=== PATIENT | male | born 1995 | race Caucasian/White ===

== ENCOUNTER 2016-11-19 13:47 | Emergency (ER) | payer SELFPAY ==
[~2016-11-19] VITALS: Ht 188 cm; Wt 117.9 kg
[~2016-11-19 13:47] MED LIST: AZITHROMYCIN250 M1 PO; BENADRYL 25MG C25 MG PO; BROMFED DM COU118 ML PO; MOTRIN 600MG.600 MG PO; NOMEDS XX; PREDNISONE 20MG20 MG PO; VISTARIL25 MG PO; ZANTAC 300300 M1 PO
--- NOTE | 2016-11-19 14:15 | Urgent Treatment Center Report ---
History of Present Issue Date/Time Seen by Provider 11/19/16 1403 Visit Reason Pt arrived:Walked Presenting Problem:N/D CHILLS SINCE YESTERDAY Location if Accident: Onset of symptoms date/time:/ or onset unknown for:MEDICAL HX UNKNOWN Have you (or family members/close friends) recently traveled outside the [place]? N If Yes, where/when: Have you had exposure to infectious disease within the past month? TB? Other? Specify: Patient states that he has not been feeling well for several days States that he has been having ear pain and chills along with nausea and diarrhea State that he thinks he may have ran a fever yesterday State that he has been trying to fight it but today he felt even worse ALLERGIES Coded Allergies: Penicillins (03/07/15) clindamycin (03/07/15) Uncoded Allergies: IMIDAZOLINE (03/07/15) History Medical History General CAD? Yes Angina: No DE: No Hypertension? No Hyperlipidemia? No CHF? No DVT? No PE? No COPD? No Asthma? No Anemia? No GERD? No Gastric ulcers? No GI Bleed? No Hernia? No Thyroid Problems? No Hypothyroidism? No CVA? No Seizures? No Diabetes? No Renal Insuffiency? No UTI? No Stones? No BPH? No GB Disease: No Nephritic Syndrome? No Asplenia? No Hepatitis? No Sickle Cell Disease? No Arthritis? No Migraines? No Cataracts? No Glaucoma? No MRSA? No HIV? No TB? No Anxiety? No Depression? No Cancer? No More? Yes Additional hx: WPW Immunization HX DT/Tetanus Unknown Flu Refused Pneumonia Refuses Surgical Hx Previous Surgery?Y PINS TO L. ELBOW CARDIAC ABLATION 2016 Family History Family HX Diabetes No CAD No Hypertension No Hyperlipidemia No Cancer Yes TB No Social History Smoking Hx Smoker: Never Smoker Tobacco: No Packs/day < 1 Pack Alcohol Alcohol: No Review of Systems All Other Systems Reviewed and Negative Constitutional chills, fever ENT ear pain, throat pain. Gastrointestinal denies abdominal pain, diarrhea, nausea, denies vomiting Physical Exam Vital Signs Vital Signs Date Time Temp Pulse Resp B/P Pulse O2 O2 Flow FiO2 Ox Delivery Rate 11/19 1400 97.8 94 18 138/87 100 General Appearance normal appearance, WD/WN, no apparent distress Ear, Nose, Throat Right pain, upon examination observed medium sized winged insect inside right ear with redness in ear and TM buldging, used crulette and winged insect removed Ear red, irritated Respiratory Status Yes: trachea midline, chest symmetrical, non tender chest. No: respiratory distress. Cardiovascular normal exam, regular rate/rhythm Gastrointestinal normal bowel sounds, normal exam, non tender, no guarding, no rebound Neurologic alert, normal exam, oriented x 3 Medical Decision Making LABS/Meds/Orders Pt receiving controlled substance in ED? No Departure Departure Time of Disposition 1420 Disposition DC Home or Self Care(routine) Clinical Impression Primary Impression: Otitis media Qualifiers: Otitis media type: unspecified Laterality: right Qualified Code: H66.91 - Otitis media, unspecified, right ear Secondary Impressions: FB ear Qualifiers: Encounter type: initial encounter Laterality: right Qualified Code: T16.1XXA - Foreign body in right ear, initial encounter Condition STABLE Referrals Darius Comer MD (Family): 3 Days-Call Office Patient Instructions DI for Ear Pain-Adult, DI for Nausea -- Adult, Diarrhea, DIET-DIARRHEA NUTRITION [facility] Additional Instructions Take medication as prescribed Follow up with family doctor REturn if needed Avoid spicy or fried foods for next couple of days Discharge Counseling Counseled pt/family regarding diagnosis, medications/RX, home care, follow up needs Prescriptions Current Visit Scripts Azithromycin (Zithromycin (Z-CYNTHIA) 250MG Tab) 250 MG PO DAILY #6 TAB TAKE TWO (2) TABLETS ON DAY 1, THEN ONE (1) TABLET DAY #2 THRU #5 at 142
[2016-11-19] MEDS ORDERED: ZITHROMAX Z PA250 MG PO (14:27)
[2016-11-19 14:29] VITALS: BP 138/87
--- OUTSIDE RECORDS SUMMARY | 2016-11-22 12:01 | External Medical Summary Rpt | CCD ---
Author Author , JESUS Organization JESUS Address Unknown Phone [email or web address] Care Team Providers Care It Communications Specialist Name Role Phone SANGEETA SANCHEZ Unavailable Unavailable CONNIE SANGEETA ROSALES, ARNOLD Unavailable Unavailable AMAURI ROSENBAUM, Unavailable Unavailable [facility]MAURI [facility] Un[facility], [facility] Angelica Figueroa MD, Unavailable Unavailable Angelica LONGORIA, Unavailable Unavailable SHAYLA LONGORIA, Unavailable Unavailable SHAYLA LONGORIA [facility], [facility] Unavailable Unavailable [id number] [address] [id number], [facility] [address] [address] [facility] [place] [facility] [place] MOH Unavailable Unavailable [facility] Unavailable Unavailable #591, [facility] [address] WEHRETELVINA III SAMIA, Unavailable Unavailable WEHRMAN III SAMIA Purpose Continuity of Care Document - 01-03-2008 through 2016 Problems Code Diagnosis DOS Provider Status 85551 COR 07-30-2014 [facility] UNSPEC [facility] TYPE VESSEL MANZANITA/LEANN T 4267 ANOMALOUS 07-30-2014 [facility] CULAR INC EXCITATION 01019 REFLUX 07-30-2014 [facility] 61344 VOMITING 07-30-2014 [facility] 5589 OTH&UNSPEC 07-06-2013 SANGEETA ROSLAES NONINFECTIO US GASTROENTER ITIS&COLITI S 462 ACUTE 06-09-2013 WEHRMAN III PHARYNGITIS SAMIA 4539 ACUTE URIS 06-09-2013 WEHRMAN III OF SAMIA UNSPECIFIED SITE 708.0 708.0 02-10-2013 All [facility] 4660 ACUTE 11-16-2012 SANGEETA ROSALES BRONCHITIS 41063 OTHER 06-19-2011 SHAYLA VISUAL GRE DISTORTIONS AND ENTOPTIC PHENOMENA 83091 UNS 10-26-2008 SANGEETA, GASTRITIS&G AMAURI Lincoln ASTRODUODIT IS W/O MENTION HEMORR 3829 UNSPECIFIED 06-13-2008 SANGEETA OTITIS AMAURI Lincoln MEDIA 4619 ACUTE 04-07-2008 SANGEETA, SINUSITIS, AMAURI [place] UNSPECIFIED D32.9 BENIGN NEOPLASM OF MENINGES, UNSPECIFIED I45.6 PRE-EXCITAT ION SYNDROME R07.9 CHEST PAIN, UNSPECIFIED R55 SYNCOPE AND COLLAPSE S06.0X9A CONCUSSION W LOSS OF CONSCIOUSNE SS OF UNSP DURATION, INIT W57.XXXA BIT/STUNG BY NONVENOM INSECT \T\ OTH NONVENOM ARTHROPODS, INIT Allergies, Adverse Reactions, Alerts Type Drug Allergy Adverse Reaction to Substance Substance Reaction Severity Decongestant, RAISES HR Intermediate Imidazoline Penicillin I-RASH Intermediate Medications Na ND Rx Da Fi Fi Am Da Di Ph RX Ph St me C No te ll ll ou ys ag ar # ys at rm s nt no ma ic us Or Da si cy ia de te s n re d De 00 01 0 No xa 51 -0 me 74 2- Lo th 90 20 ng as 12 14 er on 5 e Ac 4M ti G/ ve Ml Sd v AZ 00 03 03 1 6. 5 RI 87 AR Ac IT 09 -0 -0 00 TE 29 NO ti HR 37 2- 2- 0 93 LD ve OM 14 20 20 AI YC 61 11 11 D RI IN 8 PH CH AR AR 25 MA D 0 CY W MG 03 TA 93 BL 8 ET # 03 93 TN 00 03 03 18 6 RI 87 AR Ac OM 60 -0 -0 0. TE 29 NO ti ET 31 2- 2- 00 95 LD ve ARMENDARIZ 58 20 20 0 AI ZI 65 11 11 D RI NE 4 PH CH -D AR AR M MA D SY CY W RU P 03 93 8 # 03 93 BE 68 09 10 00 30 10 WA 70 AR Ac NZ 38 -2 -0 .0 L- 37 NO ti ON 20 2- 8- 00 MA 89 LD ve AT 24 20 20 RT 4 AT 80 09 09 RI E 1 PH CH 20 AR AR 0 MA D MG CY W CA #5 PS 91 UL E CE 00 09 10 00 20 10 WA 70 AR Ac FD 78 -2 -0 .0 L- 37 NO ti IN 12 2- 8- 00 MA 89 LD ve IR 17 20 20 RT 3 66 09 09 RI 30 0 PH CH 0 AR AR MG MA D CY W CA PS #5 UL 91 E AZ 00 09 09 00 6. 5 WA 70 AR Ac IT 78 -1 -2 00 L- 37 NO ti HR 11 7- 4- 0 MA 17 LD ve OM 49 20 20 RT 6 YC 66 09 09 RI IN 8 PH CH AR AR 25 MA D 0 CY W MG #5 TA 91 BL ET TN 00 09 09 00 18 6 WA 70 AR Ac OM 60 -1 -2 0. L- 37 NO ti ET 31 7- 4- 00 MA 17 LD ve ARMENDARIZ 58 20 20 0 RT 7 ZI 65 09 09 RI NE 8 PH CH -D AR AR M MA D SY CY W RU P #5 91 AZ 00 05 05 00 6. 5 WA 70 AR Ac IT 78 -0 -2 00 L- 19 NO ti HR 11 5- 1- 0 MA 37 LD ve OM 49 20 20 RT 8 YC 66 09 09 RI IN 8 PH CH AR AR 25 MA D 0 CY W MG #5 TA 91 BL ET LO 00 05 05 00 30 30 WA 88 AR Ac RA 78 -0 -2 .0 L- 13 NO ti TA 15 5- 1- 00 MA 99 LD ve DI 07 20 20 RT 1 NE 70 09 09 RI 1 PH CH 10 AR AR MA D MG CY W TA #5 BL 91 ET LO 00 03 04 00 40 5 WA 70 AR Ac PE 37 -2 -0 .0 L- 13 NO ti RA 82 4- 9- 00 MA 71 LD ve NH 10 20 20 RT 4 DE 00 09 09 RI 2 1 PH CH AR AR MG MA D CY W CA PS #5 UL 91 E TN 68 03 04 00 20 5 WA 70 AR Ac OM 38 -2 -0 .0 L- 13 NO ti ET 20 4- 9- 00 MA 70 LD ve ARMENDARIZ 04 20 20 RT 8 ZI 10 09 09 RI NE 1 PH CH AR AR 25 MA D CY W MG #5 TA 91 BL ET CE 00 03 03 00 20 10 WA 70 AR Ac FD 78 -0 -2 .0 L- 11 NO ti IN 12 9- 6- 00 MA 38 LD ve IR 17 20 20 RT 7 66 09 09 RI 30 0 PH CH 0 AR AR MG MA D CY W CA PS #5 UL 91 E TN 00 03 03 00 18 6 WA 70 AR Ac OM 60 -0 -2 0. L- 11 NO ti ET 31 9- 6- 00 MA 38 LD ve ARMENDARIZ 58 20 20 0 RT 9 ZI 65 09 09 RI NE 8 PH CH -D AR AR M MA D SY CY W RU P #5 91 AZ 00 11 03 01 6. 5 WA 69 AR Ac IT 78 -2 -1 00 L- 97 NO ti HR 11 4- 2- 0 MA 04 LD ve OM 49 20 20 RT 2 YC 66 08 09 RI IN 8 PH CH AR AR 25 MA D 0 CY W MG #5 TA 91 BL ET AZ 00 11 12 00 6. 5 WA 69 AR Ac IT 78 -2 -0 00 L- 97 NO ti HR 11 4- 4- 0 MA 04 LD ve OM 49 20 20 RT 2 YC 66 08 08 RI IN 8 PH CH AR AR 25 MA D 0 CY W MG #5 TA 91 BL ET LO 00 11 12 00 30 30 WA 88 AR Ac RA 78 -2 -0 .0 L- 13 NO ti TA 15 4- 4- 00 MA 12 LD ve DI 07 20 20 RT 6 NE 70 08 08 RI 1 PH CH 10 AR AR MA D MG CY W TA #5 BL 91 ET Vital Signs 02-10-2013 01:37 Name Value Interpretat Reference Comment ion Range Body 98.5 [degF] Temperature BP 82 mm[Hg] Diastolic BP Systolic 160 mm[Hg] Heart 63 /min Rate/Pulse O2% 96 % Respiratory 18 /min Rate Procedures Procedure DOS Code Location Performer Comment ONDANSETR Q0162 [facility] ON 1 MG [facility] ORL NOT INC INC EXCEED 48 HR DOSE REG Encounters Encounter Start End Date Code Location Performer Type Date EMERGENCY 44132 [facility] T VISIT LOW/MODER SEVERITY HOSPITAL [facility] - [facility] OUTPATIEN INC T EMERGENCY 26297 [facility] [place] [facility] [place] 5 5 [facility] DEPART[facility], PLL[facility] T VISIT MODERATE SEVERITY OFFICE 97901 SANGEETA MICHAELEN 4 4 CONNIE CONNIE T VISIT 15 MINUTES EMERGENCY 25947 [facility] T VISIT MODERATE SEVERITY [facility]OSPITAL [facility] - [facility] OUTPATIEN [facility] T Emergency RENZO Figueroa MD (ER) 4 01:19 4 01:37 [facility] OFFICE 18250 SANGEETA DEL CASTILLO 3 3 CONNIE CONNIE T VISIT 15 MINUTES OFFICE 63145 S[facility]ETA [facility] 3 3 CONNIE CONNIE T VISIT 15 MINUTES OFFICE 20012 SANGETEA [facility] OUT[facility] 2 2 CONNIE CONNIE T VISIT 15 MINUTES OFFICE 59995 SHAYLA MCGUIRE OUTPATIEN 2 2 GRE GRE T NEW 45 MINUTES OFFICE 78327 SANGEETA [facility] 2 2 CONNIE CONNIE T VISIT 15 MINUTES OFFICE 38284 SNAGEETA [facility] 2 2 CONNIE CONNIE T VISIT 15 MINUTES OFFICE 63162 SANGEETA MCINTOSHPATIBIPIN 1 1 CONNIE CONNIE T VISIT 15 MINUTES OFFICE 23502 SANGEETA [facility] OUTPAT[facility] 1 1 CONNIE CONNIE T VISIT 15 MINUTES OFFICE 53708 SANGEETA [facility] 9 9 AMAURI W AMAURI W T VISIT 15 MINUTES OFFICE 86703 S[facility]ETA [facility] 9 9 AMAURI W AMAURI W T VISIT 15 MINUTES OFFICE 23024 SANGEETA [facility] 9 9 AMAURI W AMAURI W T VISIT 15 MINUTES OFFICE 89593 SANGEETA [facility] 9 9 AMAURI W AMAURI W T VISIT 15 MINUTES OFFICE 43250 S[facility]ETA [facility] 9 9 AMAURI W AMAURI W T VISIT 15 MINUTES OFFICE 43247 S[facility]A [facility] 9 9 AMAURI W AMAURI W T VISIT 15 MINUTES OFFICE 48778 S[facility]ETA [facility] 8 8 AMAURI W AMAURI W T NEW 30 MINUTES
--- OUTSIDE RECORDS SUMMARY | 2016-11-22 12:01 | External Medical Summary Rpt | CCD ---
Author Author , JESUS Organization JESUS Address Unknown Phone [email or web address] Care Team Providers Care Operating Cost Clerk Name Role Phone SANGEETA SANCHEZ Unavailable Unavailable CONNIE SANGEETA ROSALES, ARNOLD Unavailable Unavailable AMAURI ROSENBAUM, Unavailable Unavailable [facility]URI [facility] Unavailable [facility] INC, [facility] Angelica Figueroa MD, Unavailable Unavailable Angelica LONGORIA, Unavailable Unavailable SHAYLA LONGORIA, Unavailable Unavailable SHAYLA LONGORIA [facility]available [facility], [facility] Unavailable Unavailable [address] [address] 0393, [facility] [address] [address] 0393 [facility] [facility] Unavailable Unavailable [facility] Unavailable Unavailable #591, [facility] WEHRETELVINA III SAMIA, Unavailable Unavailable WEHRMAN III SAMIA Purpose Continuity of Care Document - 01-03-2008 through 2016 Problems Code Diagnosis DOS Provider Status 34813 COR 07-30-2014 [facility] UNSPEC INC TYPE VESSEL [place]/LEANN T 4267 ANOMALOUS 07-30-2014 [facility] CULAR INC EXCITATION 83472 REFLUX 07-30-2014 [facility] 83762 VOMITING 07-30-2014 [facility] 5589 OTH&UNSPEC 07-06-2013 SANGEETA ROSALES NONINFECTIO US GASTROENTER ITIS&COLITI S 462 ACUTE 06-09-2013 WEHRMAN III PHARYNGITIS SAMIA 3559 ACUTE URIS 06-09-2013 WEHRMAN III OF SAMIA UNSPECIFIED SITE 708.0 708.0 02-10-2013 All [facility] 4660 ACUTE 11-16-2012 SANGEETA ROSALES BRONCHITIS 22285 OTHER 06-19-2011 SHAYLA VISUAL GRE DISTORTIONS AND ENTOPTIC PHENOMENA 07134 UNS 10-26-2008 SANGEETA, GASTRITIS&G AMAURI Lincoln ASTRODUODIT [...] 93 BL 8 ET # 03 93 MO 00 03 03 18 6 RI 87 [...] W MG #5 TA 91 BL ET MO 00 09 09 00 18 6 WA [...] 4- 9- 00 MA 71 LD ve SC 10 20 20 RT 4 DE 00 09 09 RI 2 1 PH CH AR AR MG MA D CY W CA PS #5 UL 91 E MO 68 03 04 00 20 5 WA [...] W CA PS #5 UL 91 E MO 00 03 03 00 18 6 WA [...] Date Code Location Performer Type Date EMERGENCY 15323 [facility] T VISIT LOW/MODER SEVERITY HOSPITAL [facility] - 5 5 [facility] OUTPATI[facility] T EMERGENCY 00657 [facility] [place] [facility] T VISIT MODERATE SEVERITY OFFICE 07177 SANGEETA MICHAELEN 4 4 CONNIE CONNIE T VISIT 15 MINUTES EMERGENCY 51539 ALL 4 4 [facility] T VISIT MODERATE SEVERITY HOSPITAL ALL - 4 4 [facility] OUT[facility] T Emergency RENZO Figueroa MD (ER) 4 01:19 4 01:37 [facility] OFFICE 73730 SANGEETA DEL CASTILLO 3 3 CONNIE CONNIE T VISIT 15 MINUTES OFFICE 46802 S[facility]A [facility] 3 3 CONNIE CONNIE T VISIT 15 MINUTES OFFICE 33955 SANGEETA [facility] 2 2 CONNIE CONNIE T VISIT 15 MINUTES OFFICE 41030 SHAYLA MCGUIRE OUTPATIEN 2 2 GRE GRE T [place] 45 MINUTES OFFICE 06768 SANGEETA [facility] 2 2 CONNIE CONNIE T VISIT 15 MINUTES OFFICE 79435 S[facility]ETA [facility] 2 2 CONNIE CONNIE T VISIT 15 MINUTES OFFICE 01388 SANGEETA MCINTOSHPATIBIPIN 1 1 CONNIE CONNIE T VISIT 15 MINUTES OFFICE 98206 SANGEETA [facility]PAT[facility] 1 1 CONNIE CONNIE T VISIT 15 MINUTES OFFICE 18424 S[facility]ETA [facility] 9 9 AMAURI W AMAURI W T VISIT 15 MINUTES OFFICE 01340 [facility]A [facility] 9 9 AMAURI W AMAURI W T VISIT 15 MINUTES OFFICE 81926 S[facility]A [facility] 9 9 AMAURI W AMAURI W T VISIT 15 MINUTES OFFICE 87763 S[facility]A [facility] 9 9 AMAURI W AMAURI W T VISIT 15 MINUTES OFFICE 47756 S[facility]A [facility] 9 9 AMAURI W AMAURI W T VISIT 15 MINUTES OFFICE 38231 [facility]A [facility] 9 9 AMAURI W AMAURI W T VISIT 15 MINUTES OFFICE 69490 [facility]A [facility] 8 8 AMAURI W AMAURI W T NEW 30 MINUTES
--- OUTSIDE RECORDS SUMMARY | 2016-11-22 12:02 | External Medical Summary Rpt | CCD ---
Author Author , JESUS Organization MANDOANAHY Address Unknown Phone [email or web address] Immunization Name Date Rout CVX Reac Dose Comm Prov Is Faci e tion ent ider Refu lity Give sed n Tdap 06-2 115 999 Hist H149 No H149 , 5-20 oric Adso 07 al rbed Info rmat ion - Sour ce Unsp ecif ied Vari 08-1 21 999 Hist H149 No H149 cell 5-20 oric a 01 al Info rmat ion - Sour ce Unsp ecif ied MMR 05-0 3 999 Hist H149 No H149 8-19 oric 97 al Info rmat ion - Sour ce Unsp ecif ied DTP- 05-0 22 999 Hist H149 No H149 Hib 8-19 oric 97 al Info rmat ion - Sour ce Unsp ecif ied Hep 05-0 8 999 Hist H149 No H149 B, 8-19 oric ped/ 97 al adol Info rmat ion - Sour ce Unsp ecif ied DTP- 08-1 22 999 Hist H149 No H149 Hib 4-19 oric 96 al Info rmat ion - Sour ce Unsp ecif ied Hep 08-1 8 999 Hist H149 No H149 B, 4-19 oric ped/ 96 al adol Info rmat ion - Sour ce Unsp ecif ied Amando 08-1 2 999 Hist H149 No H149 o-OP 4-19 oric V 96 al Info rmat ion - Sour ce Unsp ecif ied [place]ando 06-1 2 999 Hist H149 No H149 o-OP 0-19 oric V 96 al Info rmat ion - Sour ce Unsp ecif ied Hep 06-1 45 999 Hist H149 No H149 B, 0-19 oric UF 96 al Info rmat ion - Sour ce Unsp ecif ied DTP- 06-1 22 999 Hist H149 No H149 Hib 0-19 oric 96 al Info rmat ion - Sour ce Unsp ecif ied [place]ando 04-0 2 999 Hist H149 No H149 o-OP 8-19 oric V 96 al Info rmat ion - Sour ce Unsp ecif ied DTP- 04-0 22 999 Hist H149 No H149 Hib 8-19 oric 96 al Info rmat ion - Sour ce Unsp ecif ied
--- OUTSIDE RECORDS SUMMARY | 2016-11-22 12:02 | External Medical Summary Rpt | CCD ---
Author Author , JESUS Organization MANDOANAHY Address Unknown Phone [email or web address] Immunization Name Date Rout CVX Reac Dose [...]
--- OUTSIDE RECORDS SUMMARY | 2016-11-22 12:02 | External Medical Summary Rpt ---
Author Author JESUS Heath, JESUS [employer] Organization [employer] Address Unknown Phone Unavailable Results EK EKG 12 LEAD Observa Value Referen Units Interpr Notes Date ti ce etation Range Station No No No No Mar 09 ata ECG informa informa informa informa 2016 tion in ti in tion in in 10:56 Study\. source source source source AM br\St. data data data data Elizabe th Edge[employer] d\.br\I nterpre tive Stateme nts\.br \SINUS RHYTHM\ .br\EAR LY REPOLAR IZATION \.br\TA LL T-WAVES , SUGGEST S HYPERKA LEMIA\. br\Elec tronica lly Signed On 03-09-19 16 19:41:1 6 EST by Donald Ryan MD ELECTROPHYSIOLOGY PROCEDURE Observa Value Referen Units Interpr Notes Date ti ce etation Range This is No No No No Mar 09 a informa informa informa informa 2016 summary tion in tion in tion in ti in 10:38 source source source source AM report. data data data data The complet e report is availab le in the patient 's medical record. If you cannot access the medical record, please contact the sending [facility] [place] [facility] for a detaile d fax or copy.\. br\\.br \1. Success ful transse ptal LA Access under fluoros copic and ICE guidanc e\.br\2 . 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 and\.br \ablati on of left anterol ateral AP\.br\ ACT POC Observa Value Referen Units Interpr Notes Date ce etation Range ACT-LR 258 89 - second( High No Mar 09 169 s) informa 2015 tion in 9:54 AM source data Auto Diff Observa Value Referen Units Interpr Notes Date ce etation Range Neutrop 50.8 No % No No Mar 09 hils informa informa informa 2016 [#/volu tion in tion in tion in 7:47 AM me] in source source source Blood data data data by Automat ed count Lymphoc 37.0 No % No Mar 09 ytes informa informa informa 2016 [#/volu tion in tion in tion in 7:47 AM me] in source source source Blood data data data by Automat ed count Monocyt 7.9 No % No Mar 09 es informa informa informa 2015 [#/volu tion in tion in tion in 7:47 AM me] in source source source Blood data data data by Automat ed count Eos 3.9 No % No Mar 09 Percent informa informa informa 2016 tion in tion in tion in 7:47 AM source source source data data data Baso 0.4 No % No Mar 09 Percent informa informa informa 2016 tion in tion in tion in 7:47 AM source source source data data data Neut# 5.3 1.8 - x10(3)/ No Mar 09 7.7 mcL informa informa 2016 tion in tion in 7:47 AM source source data data Lymph# 3.9 0.6 - x10(3)/ No No Mar 09 4.8 mcL informa informa 2016 tion in tion in 7:47 AM source source data data [place]# 0.8 0.0 - x10(3)/ No No Mar 09 1.3 mcL informa informa 2016 tion in tion in 7:47 AM source source data data Eos# 0.4 0.0 - x10(3)/ No No Mar 09 0.5 mcL informa informa 2016 tion in tion in 7:47 AM source source data data Baso# 0.0 0.0 - x10(3)/ No No Mar 09 0.2 mcL informa informa 2016 tion in tion in 7:47 AM source source data data CBC Observa Value Referen Units Interpr Notes Date tion ce etation Range Do not repeat if done in the past 10 days. LEUKOCY 10.5 4.0 - x10(3)/ No No Mar 09 YANELIS 11.0 mcL informa informa 2016 tion in tion in 7:47 AM source source data data Erythro 5.98 4.30 - x10(6)/ High No Mar 09 cytes 5.81 mcL informa 2016 [#/volu tion in 7:47 AM me] in source Blood data by Automat ed count Hemoglo 16.9 13.5 - gm/dL No Mar 09 bin 17.1 informa informa 2016 [Mass/v tion in tion in 7:47 AM olume] source source in data data Blood Hematoc 52.3 38.9 - % High No Mar 09 rit 51.6 informa 2016 [Volume tion in 7:47 AM source Fractio data n] of Blood by Automat ed count Erythro 87.6 82.5 - fL No Mar 09 cyte 99.8 informa informa 2016 mean tion in tion in 7:47 AM corpusc source source ular data data volume [Entiti c volume] by Automat ed count Erythro 28.3 27.0 - pg No Mar 09 cyte 34.3 informa informa 2015 mean tion in tion in 7:47 AM corpusc source source ular data data hemoglo bin [Entiti c mass] by Automat ed count Erythro 32.3 32.1 - gm/dL No Mar 09 cyte 35.3 informa informa 2016 mean tion in tion in 7:47 AM corpusc source source ular data data hemoglo bin concent ration [Mass/v olume] by Automat ed count Erythro 13.6 11.5 - % No Mar 09 cyte 15.0 informa informa 2016 distrib tion in tion in 7:47 AM ution source source width data data [Ratio] by Automat ed count Platele 229 144 - x10(3)/ No No Mar 09 ts 423 mcL informa informa 2016 [#/volu tion in tion in 7:47 AM me] in source source Blood data data by Automat ed count MPV 9.5 6.8 - fL No No Mar 09 10.8 informa informa 2016 tion in tion in 7:47 AM source source data data PT Observa Value Referen Units Interpr Notes Date tion ce etation Range PT/INR only if patient is on Coumadin. Notify creative developer if INR is 1.8 or greater PT 11.6 9.3 - second( No No Mar 08 12.3 s) informa informa 2016 tion in tion in 7:11 PM source source data data INR in 1.08 0.87 - No No Level Mar 08 Platele 1.15 informa informa of 2016 t poor tion in tion in Therapy 7:11 PM plasma source source by data data Indicat Coagula ions tion Target assay INR Range\. br\\.br \Standa rd Dose Treatme nt and prophyl axis of venous 2.0 - 3.0\.br \ thrombo sis, pulmona ry embolis m\.br\\ .br\ High Dose High risk patient s with mechani loni 2.5 - 3.5\.br \ heart valves Auto Diff Observa Value Referen Units Interpr Notes Date tion ce etation Range Neutrop 63.6 No % No No Mar 08 hils informa informa informa 2015 [#/volu tion in tion in tion in 6:56 PM me] in source source source Blood data data data by Automat ed count Lymphoc 26.9 No % No No Mar 08 ytes informa informa informa 2015 [#/volu tion in tion in tion in 6:56 PM me] in source source source Blood data data data by Automat ed count Monocyt 5.6 No % No No Mar 08 es informa informa informa 2015 [#/volu tion in tion in tion in 6:56 PM me] in source source source Blood data data data by Automat ed count Eos 3.2 No % No No Mar 08 Percent informa informa informa 2016 tion in tion in tion in 6:56 PM source source source data data data Baso 0.7 No % No No Mar 08 Percent informa informa informa 2016 tion in tion in tion in 6:56 PM source source source data data data Neut# 5.0 1.8 - x10(3)/ No No Mar 08 7.7 mcL informa informa 2016 tion in tion in 6:56 PM source source data data Lymph# 2.1 0.6 - x10(3)/ No No Mar 08 4.8 mcL informa informa 2016 tion in tion in 6:56 PM source source data data [place]# 0.4 0.0 - x10(3)/ No No Mar 08 1.3 mcL informa informa 2016 tion in tion in 6:56 PM source source data data Eos# 0.2 0.0 - x10(3)/ No No Mar 08 0.5 mcL informa informa 2016 tion in tion in 6:56 PM source source data data Baso# 0.1 0.0 - x10(3)/ No No Mar 08 0.2 mcL informa informa 2016 tion in tion in 6:56 PM source source data data CBC Observa Value Referen Units Interpr Notes Date tion ce etation Range Do not repeat if done in the past 10 days. LEUKOCY 7.8 4.0 - x10(3)/ No No Mar 08 YANELIS 11.0 [facility] informa informa 2015 tion in tion in 6:56 PM source source data data Erythro 5.54 4.30 - x10(6)/ No No Mar 08 cytes 5.81 [facility] informa informa 2015 [#/volu tion in tion in 6:56 PM me] in source source Blood data data by Automat ed count Hemoglo 15.6 13.5 - gm/dL No Mar 08 bin 17.1 informa informa 2015 [Mass/v tion in tion in 6:56 PM olume] source source in data data Blood Hematoc 47.7 38.9 - % No No Mar 08 rit 51.6 informa informa 2015 [Volume tion in tion in 6:56 PM source source Fractio data data n] of Blood by Automat ed count Erythro 86.1 82.5 - fL No No Mar 08 cyte 99.8 informa informa 2016 mean tion in tion in 6:56 PM corpusc source source ular data data volume [Entiti c volume] by Automat ed count Erythro 28.1 27.0 - pg No No Mar 08 cyte 34.3 informa informa 2015 mean tion in tion in 6:56 PM corpusc source source ular data data hemoglo bin [Entiti c mass] by Automat ed count Erythro 32.7 32.1 - gm/dL No No Mar 08 cyte 35.3 informa informa 2016 mean tion in tion in 6:56 PM corpusc source source ular data data hemoglo bin concent ration [Mass/v olume] by Automat ed count Erythro 13.5 11.5 - % No No Mar 08 cyte 15.0 informa informa 2016 distrib tion in tion in 6:56 PM ution source source width data data [Ratio] by Automat ed count Platele 210 144 - x10(3)/ No No Mar 08 ts 423 mcL informa informa 2016 [#/volu tion in tion in 6:56 PM me] in source source Blood data data by Automat ed count MPV 9.5 6.8 - fL No No Mar 08 10.8 informa informa 2016 tion in tion in 6:56 PM source source data data
--- OUTSIDE RECORDS SUMMARY | 2016-11-22 12:02 | External Medical Summary Rpt | CCD ---
Author Author , JESUS LEE Address Unknown Phone Care Team Providers Care Frame Feeder Name Role Phone SANGEETA SANCHEZ Unavailable Unavailable CONNIE SANGEETA ROSALES, SANGEETA Unavailable Unavailable CONNIE AMAURI R[facility]HER[facility], Unavailable Unavailable [facility] Un[facility] SHAYLA GRE, Unavailable Unavailable SHAYLA GRE SHAYLA GRE, Unavailable Unavailable SHAYLA GRE [facility], Unavailable Unavailable PLL[facility], [facility], [facility] Unavailable Unavailable [id number] [phone], [facility] [id number] [phone] SADEK MOH, LUCILAEK MOH Unavailable Unavailable [facility] Unavailable Unavailable [address]591, [facility] [address] WEHRMAN III SAMIA, Unavailable Unavailable WEHRMAN III SAMIA WEHRMAN III SAMIA, Unavailable Unavailable WEHRMAN III SAMIA Purpose Continuity of Care Document - 01-03-2008 through 2016 Problems Code Diagnosis DOS Provider Status 85131 COR 07-30-2014 [facility] UNSPEC [facility] TYPE VESSEL [place]/LEANN T 4267 ANOMALOUS 07-30-2014 [facility] CULAR INC EXCITATION 51521 REFLUX 07-30-2014 [facility], [facility] 80542 VOMITING 07-30-2014 [facility], [facility] 5589 OTH&UNSPEC 07-06-2013 SANGEETA ROSALES NONINFECTIO US GASTROENTER ITIS&COLITI S 462 ACUTE 06-09-2013 WEHRMAN III PHARYNGITIS SAMIA 4659 ACUTE URIS 06-09-2013 WEHRMAN III OF SAMIA UNSPECIFIED SITE 4660 ACUTE 11-16-2012 SANGEETA ROSALES BRONCHITIS 98128 OTHER 06-19-2011 SHAYLA VISUAL GRE DISTORTIONS AND ENTOPTIC PHENOMENA 71109 UNS 10-26-2008 SANGEETA GASTRITIS&G AMAURI [place] ASTRODUODIT IS W/O MENTION HEMORR 3829 UNSPECIFIED 06-13-2008 [facility]OLY [facility] MEDIA 4619 ACUTE 04-07-2008 SANGEETA SINUSITISAMAURI UNSPECIFIED Medications Na ND Rx Da Fi Fi Am Da Di Ph RX Ph St me C No te ll ll ou ys ag ar # ys at rm s nt no ma ic us Or Da si cy ia de te s n re d AZ 00 03 03 1 6. 5 RI 87 AR Ac IT 09 -0 -0 00 TE 29 NO ti HR 37 2- 2- 0 93 LD ve OM 14 20 20 AI YC 61 11 11 D RI IN 8 PH CH AR AR 25 MA D 0 CY W MG 03 TA 93 BL 8 ET # 03 93 ID 00 03 03 18 6 RI 87 [...] W MG #5 TA 91 BL ET ID 00 09 09 00 18 6 WA [...] CY W TA #5 BL 91 ET ID 68 03 04 00 20 5 WA 70 AR Ac OM 38 -2 -0 .0 L- 13 NO ti ET 20 4- 9- 00 MA 70 LD ve ARMENDARIZ 04 20 20 RT 8 ZI 10 09 09 RI NE 1 PH CH AR AR 25 MA D CY W MG #5 TA 91 BL ET LO 00 03 04 00 40 5 WA 70 AR Ac PE 37 -2 -0 .0 L- 13 NO ti RA 82 4- 9- 00 MA 71 LD ve TN 10 20 20 RT 4 DE 00 09 09 RI 2 1 PH CH AR AR MG MA D CY W CA PS #5 UL 91 E ID 00 03 03 00 18 6 WA 70 AR Ac OM 60 -0 -2 0. L- 11 NO ti ET 31 9- 6- 00 MA 38 LD ve ARMENDARIZ 58 20 20 0 RT 9 ZI 65 09 09 RI NE 8 PH CH -D AR AR M MA D SY CY W RU P #5 91 CE 00 03 03 00 20 10 WA 70 AR Ac FD 78 -0 -2 .0 L- 11 NO ti IN 12 9- 6- 00 MA 38 LD ve IR 17 20 20 RT 7 66 09 09 RI 30 0 PH CH 0 AR AR MG MA D CY W CA PS #5 UL 91 E AZ 00 11 03 01 6. 5 [...] CY W TA #5 BL 91 ET AZ 00 11 12 00 6. 5 WA 69 AR Ac IT 78 -2 -0 00 L- 97 NO ti HR 11 4- 4- 0 MA 04 LD ve OM 49 20 20 RT 2 YC 66 08 08 RI IN 8 PH CH AR AR 25 MA D 0 CY W MG #5 TA 91 BL ET Procedures Procedure DOS Code Location Performer Comment ONDAROXIEETR Q0162 LAL CARRIZALES ON 1 MG [facility] ORL NOT INC INC EXCEED 48 HR DOSE REG Encounters Encounter Start End Date Code Location Performer Type Date EMERGENCY 78558 [facility] 5 [facility]YSIC[facility] DEPARTMEN S, PLLC T VISIT MODERATE SEVERITY [facility]OSP[facility] - 5 5 [facility] OUTPATIEN INC T EMERGENCY 73714 [facility] 5 5 [facility] DEPARTMEN INC T VISIT LOW/MODER SEVERITY OFFICE 36664 SANGEETA DEL CASTILLO 4 4 CONNIE CONNIE T VISIT 15 MINUTES EMERGENCY 59504 NOY VILLAFUERTE 4 4 III SAMIA III SAMIA DEPARTMEN T VISIT [facility] - 4 4 [facility] OUTPAT[facility]EN INC T OFFICE 18266 SANGEETA DEL CASTILLO 3 3 CONNIE CONNIE T VISIT 15 MINUTES OFFICE 75037 SANGEETA DEL CASTILLO 3 3 CONNIE CONNIE T VISIT 15 MINUTES OFFICE 91855 SANGEETA DEL CASTILLO 2 2 CONNIE CONNIE T VISIT 15 MINUTES OFFICE 49645 SANGEETA DEL CASTILOL 2 2 CONNIE CONNIE T VISIT 15 MINUTES OFFICE 46130 SHAYLA DEL CASTILLO 2 2 GRE GRE T NEW 45 MINUTES OFFICE 04310 SANGEETA DEL CASTILLO 2 2 CONNIE CONNIE T VISIT 15 MINUTES OFFICE 13605 SANGEETA DEL CASTILLO 1 1 CONNIE CONNIE T VISIT 15 MINUTES OFFICE 55794 SANGEETA DEL CASTILLO 1 1 CONNIE CONNIE T VISIT 15 MINUTES OFFICE 91407 SANGEETA [facility] OUTPATIEN 9 9 AMAURI W AMAURI W T VISIT 15 MINUTES OFFICE 20133 SANGEETA [facility] 9 9 [facility] T VISIT 15 MINUTES OFFICE 20728 SANGEEAT [facility] OUTPATIEN 9 9 AMAURI W AMAURI W T VISIT 15 MINUTES OFFICE 54635 SANGEETA [facility] OUTPAT[facility]EN 9 9 [facility] W T VISIT 15 MINUTES OFFICE 03121 SANGEETA [facility] OUTPATIEN 9 9 [facility] W T VISIT 15 MINUTES OFFICE 02528 SANGEETA [facility] OUTPAT[facility]EN 9 9 [facility]MAURI [facility] W T VISIT 15 MINUTES OFFICE 74097 SANGEETA [facility] OUTPAT[facility] 8 8 AMAURI [facility] W T NEW 30 MINUTES
--- OUTSIDE RECORDS SUMMARY | 2016-11-22 12:02 | External Medical Summary Rpt | CCD ---
Author Author , JESUS LEE Address Unknown Phone [email or web address] Care Team Providers Care Explosive Specialist Name Role Phone SANGEETA SANCHEZ Unavailable Unavailable CONNIE SANGEETA ROSALES, SANGEETA Unavailable Unavailable CONNIE AMAURI RUTHERF[facility], Unavailable Unavailable [facility] Un[facility] SHAYLA GRE, Unavailable Unavailable SHAYLA GRE SHAYLA GRE, Unavailable Unavailable SHAYLA GRE [facility], Unavailable Unavailable PLL[facility], [facility], [facility] Unavailable Unavailable [address] [address] 0393, [facility] [address] [address] 0393 SADEK MOH, LUCILAEK MOH Unavailable Unavailable [facility] Unavailable Unavailable #591, [facility] WEHRMAN III SAMIA, Unavailable Unavailable WEHRMAN III SAMIA WEHRMAN III SAMIA, Unavailable Unavailable WEHRMAN III SAMIA Purpose Continuity of Care Document - 01-03-2008 through 2016 Problems Code Diagnosis DOS Provider Status 23298 COR 07-30-2014 [facility] UNSPEC INC TYPE VESSEL [place]/LEANN T 4267 ANOMALOUS 07-30-2014 [facility] CULAR INC EXCITATION 15262 REFLUX 07-30-2014 [facility], [facility] 39148 VOMITING 07-30-2014 [facility], [facility] 5589 OTH&UNSPEC 07-06-2013 SANGEETA ROSALES NONINFECTIO US GASTROENTER ITIS&COLITI S 462 ACUTE 06-09-2013 WEHRMAN III PHARYNGITIS SAMIA 4659 ACUTE URIS 06-09-2013 WEHRMAN III OF SAMIA UNSPECIFIED SITE 4660 ACUTE 11-16-2012 SANGEETA ROSALES BRONCHITIS 40559 OTHER 06-19-2011 SHAYLA VISUAL GRE DISTORTIONS AND ENTOPTIC PHENOMENA 24979 UNS 10-26-2008 SANGEETA GASTRITIS&G AMAURI [place] ASTRODUODIT [...] 93 BL 8 ET # 03 93 NH 00 03 03 18 6 RI 87 [...] W MG #5 TA 91 BL ET NH 00 09 09 00 18 6 WA [...] CY W TA #5 BL 91 ET NH 68 03 04 00 20 5 WA [...] 4- 9- 00 MA 71 LD ve MO 10 20 20 RT 4 DE 00 09 09 RI 2 1 PH CH AR AR MG MA D CY W CA PS #5 UL 91 E NH 00 03 03 00 18 6 WA [...] DOS Code Location Performer Comment ONDAROXIEETR Q0162 ALL CARRIZALES ON 1 MG 5 [facility] ORL NOT INC INC EXCEED 48 HR DOSE REG Encounters Encounter Start End Date Code Location Performer Type Date EMERGENCY 63103 [facility]O [facility] [place] 5 5 PHYSICIAN DEPARTMEN S, PLLC T VISIT [facility] - 5 5 [facility] OUTPATIEN INC T EMERGENCY 71005 ALL 5 5 [facility] DEPARTMEN INC T VISIT LOW/MODER SEVERITY OFFICE 30744 SANGEETA DEL CASTILLO 4 4 CONNIE CONNIE T VISIT 15 MINUTES EMERGENCY 99968 NOY VILLAFUERTE 4 4 III SAMIA III SAMIA DEPARTMEN T VISIT [facility] ALL - 4 4 [facility] OUTPATIEN INC T OFFICE 85227 SANGEETA DEL CASTILLO 3 3 CONNIE CONNIE T VISIT 15 MINUTES OFFICE 30573 SANGEETA DEL CASTILLO 3 3 CONNIE CONNIE T VISIT 15 MINUTES OFFICE 21301 SANGEETA DEL CASTILLO 2 2 CONNIE CONNIE T VISIT 15 MINUTES OFFICE 36452 SANGEETA DEL CASTILLO 2 2 CONNIE CONNIE T VISIT 15 MINUTES OFFICE 73796 SHAYLA DEL CASTILLO 2 2 GRE GRE T NEW 45 MINUTES OFFICE 13637 SANGEETA DEL CASTILLO 2 2 CONNIE CONNIE T VISIT 15 MINUTES OFFICE 82739 SANGEETA DEL CASTILLO 1 1 CONNIE CONNIE T VISIT 15 MINUTES OFFICE 91247 SANGEETA DEL CASTILLO 1 1 CONNIE CONNIE T VISIT 15 MINUTES OFFICE 34836 SANGEETA [facility] OUTPATIEN 9 9 AMAURI W AMAURI W T VISIT 15 MINUTES OFFICE 12579 SANGEETA [facility] OUTPATIEN 9 9 [facility] W T VISIT 15 MINUTES OFFICE 61736 SANGEETA RUTHERFORD OUTPATIEN 9 9 AMAURI W AMAURI W T VISIT 15 MINUTES OFFICE 17269 SANGEETA [facility] OUTPATIEN 9 9 [facility] W T VISIT 15 MINUTES OFFICE 78985 SANGEETA [facility] OUTPATIEN 9 9 [facility] W T VISIT 15 MINUTES OFFICE 62992 SANGEETA [facility] OUTPATIEN 9 9 AMAURI [facility] W T VISIT 15 MINUTES OFFICE 25342 SANGEETA [facility] OUTPATIEN 8 8 AMAURI [facility] W T NEW 30 MINUTES
--- OUTSIDE RECORDS SUMMARY | 2016-11-22 12:02 | External Medical Summary Rpt ---
Author Author JESUS Heath, JESUS [employer] Organization [employer] Address Unknown Phone Unavailable [...] the medical record, please contact the sending [facility] [place] for a detaile d fax or copy.\. [...] in 7:47 AM source source data data [place]# 0.8 0.0 - x10(3)/ No No Mar [...] only if patient is on Coumadin. Notify bus mechanic if INR is 1.8 or greater PT [...] in 6:56 PM source source data data [place]# 0.4 0.0 - x10(3)/ No No Mar [...] x10(3)/ No No Mar 08 YANELIS 11.0 [facility] informa informa 2015 tion in tion in 6:56 PM source source data data Erythro 5.54 4.30 - x10(6)/ No No Mar 08 cytes 5.81 [facility] informa informa 2015 [#/volu tion in [...]
== END 2016-11-19 14:29 | disposition home or self-care (01) ==
LOC: UTC 13:47
DX: H66.91 Otitis media, unspecified, right ear (principal); T16.1XXA Foreign body in right ear, initial encounter; I25.10 Atherosclerotic heart disease of native coronary artery without angina pectoris; Z88.0 Allergy status to penicillin

== ENCOUNTER 2016-12-24 14:39 | Emergency (ER) | payer OTHER ==
[~2016-12-24] VITALS: Ht 188 cm; Wt 117.9 kg
[~2016-12-24 14:39] MED LIST changes: +ZITHROMAX Z PA250 MG PO
--- OUTSIDE RECORDS SUMMARY | 2016-12-24 14:46 | External Medical Summary Rpt | CCD ---
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
--- OUTSIDE RECORDS SUMMARY | 2016-12-24 14:46 | External Medical Summary Rpt | CCD ---
Author Author , JESUS Organization [employer] Address Unknown Phone [email or web address] Care Team Providers Care Letterpress Printing Machinist Name Role Phone Angelica Figueroa MD, Unavailable Unavailable Angelica Figueroa MD Purpose Continuity of Care Document - 02-10-2013 through 2016 Problems Code Diagnosis DOS Provider Status 708.0 708.0 02-10-2013 [facility] D32.9 BENIGN NEOPLASM OF MENINGES, UNSPECIFIED [...] Figueroa MD (ER) 4 01:19 4 01:37 [facility]
--- OUTSIDE RECORDS SUMMARY | 2016-12-24 14:47 | External Medical Summary Rpt | CCD ---
Author Author , JESUS Organization [employer] Address Unknown Phone [email or web address] Immunization Name Date Rout CVX Reac Dose [...]
--- OUTSIDE RECORDS SUMMARY | 2016-12-24 14:47 | External Medical Summary Rpt ---
Author Author JESUS Heath, JESUS [employer] Organization [employer] Address Unknown Phone Unavailable [...] the medical record, please contact the sending [facility] for a detaile d fax or copy.\. [...] in 7:47 AM source source data data [place]# 0.8 0.0 - x10(3)/ No No Mar [...] only if patient is on Coumadin. Notify coordinate measuring machine technician if INR is 1.8 or greater PT [...] in 6:56 PM source source data data [place]# 0.4 0.0 - x10(3)/ No No Mar [...] x10(3)/ No No Mar 08 YANELIS 11.0 [facility] informa informa 2015 tion in tion in 6:56 PM source source data data Erythro 5.54 4.30 - x10(6)/ No No Mar 08 cytes 5.81 [facility] informa informa 2015 [#/volu tion in tion [...]
--- OUTSIDE RECORDS SUMMARY | 2016-12-24 14:47 | External Medical Summary Rpt ---
Author Author JESUS Heath, JESUS [employer] Organization [employer] Address Unknown Phone Unavailable [...] the medical record, please contact the sending [facility] for a detaile d fax or copy.\. [...] in 7:47 AM source source data data [place]# 0.8 0.0 - x10(3)/ No No Mar [...] only if patient is on Coumadin. Notify news department intern if INR is 1.8 or greater PT [...] in 6:56 PM source source data data [place]# 0.4 0.0 - x10(3)/ No No Mar [...] x10(3)/ No No Mar 08 YANELIS 11.0 [facility] informa informa 2015 tion in tion in 6:56 PM source source data data Erythro 5.54 4.30 - x10(6)/ No No Mar 08 cytes 5.81 [facility] informa informa 2015 [#/volu tion in tion [...]
--- OUTSIDE RECORDS SUMMARY | 2016-12-24 14:47 | External Medical Summary Rpt | CCD ---
Author Author , JESUS Organization [employer] Address Unknown Phone [email or web address] Immunization Name Date Rout CVX Reac Dose [...]
--- NOTE | 2016-12-24 15:07 | [facility] Report ---
History of Present Issue Date/Time Seen by Provider 12/24/16 1507 Visit Reason Pt arrived:Walked Presenting Problem:COMPLAINS OF SORE THROAT AND RUNNY NOSE X 1 WEEK. Location if Accident: Onset of symptoms date/time:/ or onset unknown for:MEDICAL HX UNKNOWN Have you (or family members/close friends) recently traveled outside the [place]? N If Yes, where/when: Have you had exposure to infectious disease within the past month? TB? Other? Specify: c/o sore throat and runny nose. Started w/ runny nose around one week ago. Sore throat started approx 2 days ago, primarily on left. Denies ear pain. No known fevers but reports "he felt feverish" the last 2 nights. Hasn't taken or tried anything for symptoms. "I just thought it would have gone away by now". No known sick contacts. Source patient Exam Limitations no limitations ALLERGIES Coded Allergies: Penicillins (03/07/15) clindamycin (03/07/15) Uncoded Allergies: IMIDAZOLINE (03/07/15) History Medical History General CAD? Yes Angina: No RI: No Hypertension? No Hyperlipidemia? No CHF? No DVT? No PE? No COPD? No Asthma? No Anemia? No GERD? No Gastric ulcers? No GI Bleed? No Hernia? No Thyroid Problems? No Hypothyroidism? No CVA? No Seizures? No Diabetes? No Renal Insuffiency? No UTI? No Stones? No BPH? No GB Disease: No Nephritic Syndrome? No Asplenia? No Hepatitis? No Sickle Cell Disease? No Arthritis? No Migraines? No Cataracts? No Glaucoma? No MRSA? No HIV? No TB? No Anxiety? No Depression? No Cancer? No More? Yes Additional hx: WPW Immunization HX DT/Tetanus Unknown Flu Refused Pneumonia Refuses Surgical Hx Previous Surgery?Y PINS TO L. ELBOW CARDIAC ABLATION 2015 Family History Family HX Diabetes No CAD No Hypertension No Hyperlipidemia No Cancer Yes TB No Social History Smoking Hx Smoker: Current Every Day Smoker Tobacco: Yes Type Chew Packs/day < 1 Pack Alcohol Alcohol: No Review of Systems All Other Systems Reviewed and Negative Constitutional see HPI, denies malaise, denies weakness Eyes denies drainage ENT see HPI, nose congestion. denies: ear discharge, throat swelling. Respiratory cough (minimal, intermittent, ), denies shortness of breath, denies wheezing Cardiovascular denies chest pain Gastrointestinal denies no symptoms reported Musculoskeletal denies joint pain Skin denies rash Psychiatric/Neurological denies headache Physical Exam Vital Signs Vital Signs Date Time Temp Pulse Resp B/P Pulse O2 O2 Flow FiO2 Ox Delivery Rate 12/24 1502 99.0 105 20 123/83 99 General Appearance normal appearance, no apparent distress Eye Exam - bilateral eye normal exam Ear, Nose, Throat nasal congestion, pharyngeal erythema (mild w/ PND), right EAC and TM unremarkable, left EAC near inner ear erythematous w/ TM intact, bulging, dull red Neck non-tender, supple Respiratory Status No: respiratory distress, productive cough, non productive cough. Lung Sounds anterior: lungs clear. posterior: lungs clear. bilateral: lungs clear. Cardiovascular regular rate/rhythm, no peripheral edema, no murmur Neurologic alert, oriented x 3 Mental status normal mood/affect Skin normal color, warm/dry Lymphatic no adenopathy Medical Decision Making LABS/Meds/Orders Pt receiving controlled substance in ED? No Results/Orders Laboratory Tests 12/24/16 1452: Group A Strep Screen NOT DETECTED Orders Procedure Date/time Status [facility] STREP SCREEN 12/24 1452 Complete Departure Departure Time of Disposition 1533 Disposition DC Home or Self Care(routine) Clinical Impression Primary Impression: Left otitis media Qualifiers: Otitis media type: unspecified Qualified Code: H66.92 - Otitis media, unspecified, left ear Condition STABLE Referrals NO REFERRAL Immediately for new or worsening symptoms, no noticeable improvement in 72 hours Patient Instructions DI for Otitis Media (Middle Ear Infection)-Child Additional Instructions * Start antibiotic ZAIN and be sure to take as ordered for the FULL length of time although you should start to feel better in 24-48 hours. * Monitor Temp. Follow up if fever develops * Encourage fluids, water, Gatorade, PowerAde, pedialyte if infant/toddler/child * warm compress often helps when placed over ear * warm salt water gargles * warm fluids * sore throat lozenges * sleep elevated * humidifier/vaporizer Discharge Counseling Counseled pt/family regarding diagnosis, test results, medications/RX, home care, follow up needs Prescriptions Current Visit Scripts CEFDINIR (Cefdinir) 300 MG PO BID #20 CAP at 1540
[2016-12-24] MEDS ORDERED: CEFDINIR 300MG300 MG PO (15:36)
[2016-12-24 15:40] VITALS: BP 120/79
== END 2016-12-24 15:43 | disposition home or self-care (01) ==
LOC: UTC 14:39
DX: H66.92 Otitis media, unspecified, left ear (principal); Z88.0 Allergy status to penicillin